=== PATIENT | female | born 1940 | race Caucasian/White ===

== ENCOUNTER 2018-04-23 08:19 | Emergency (ER) | payer OTHER, BC ==
--- NOTE | 2018-04-23 09:07 | EDPHYS ---
Physician Documentation [facility] Name: Gavi Claudio Age: 78 yrs Sex: Female : 1940 Arrival Date: 04/23/2018 Time: 08:21 Bed 8 Private MD: Jomar Urbano ED Physician Sigifredo Kwan HPI: 04/23 11:39 This 78 yrs old Female presents to ER via Wheelchair with complaints of Cat kdr Attack. 11:39 This 78 yrs old Female presents to ER via Wheelchair with complaints of Cat kdr Attack - pawed at her hand while opening canned cat food. 11:39 The patient was bitten on the dorsum of left hand, in an unprovoked manner, Feeding kdr cats. Onset: The symptoms/episode began/occurred acutely, just prior to arrival. Animal information: The animal was reported to appear healthy. Animal's vaccinations are up to date. The animal is known and can be quarantined, Animal control has. Secondary to the bite the patient reports a laceration, that is superficial, 2.5 cm(s), pain. Associated signs and symptoms: The patient has no apparent associated signs or symptoms. Severity of symptoms: At their worst the symptoms were very mild, in the emergency department the symptoms are unchanged. The patient has not experienced similar symptoms in the past. The patient has not recently seen a physician. Historical: - Allergies: 08:39 PENICILLINS; iw - Home Meds: 08:39 [place] Thyroid 60 mg Oral tab daily [Active]; folic acid 800 mcg Oral tab 1 tab once iw daily [Active]; aspirin 81 mg Oral TbEC 1 tab once daily [Active]; gabapentin 400 mg oral cap four times a day [Active]; magnesium oxide 250 mg Oral tab daily [Active]; methotrexate sodium 2.5 mg Oral tab once wkly [Active]; - PMHx: 08:39 Hypothyroidism; RA; Hypertension; iw - PSHx: 08:39 Appendectomy; Joint replacement; Knee surgery; iw - Immunization history:: Adult Immunizations not up to date, Last tetanus immunization: unknown. - Social history:: Smoking status: Patient/guardian denies using tobacco. - Ebola Screening: : Patient negative for fever greater than or equal to 101.5 degrees Fahrenheit, and additional compatible Ebola Virus Disease symptoms Patient denies exposure to infectious person Patient denies travel to an Ebola-affected area in the 21 days before illness onset No symptoms or risks identified at this time. ROS: 11:39 Constitutional: Negative for fever, chills, and weight loss. kdr 11:39 Skin: Positive for laceration(s), Negative for abscesses, avulsion, cellulitis, lesions, pallor, swelling. Exam: 11:39 Skin: injury, laceration(s), the wound is approximately 2.5 cm(s), with a depth of kdr 0.1 cm(s), of the left hand. 17:29 Constitutional: This is a well developed, well nourished patient who is awake, alert, kdr and in no acute distress. Vital Signs: 08:36 BP 135 / 84; Pulse 61; Resp 18 S; Temp 98.2; Pulse Ox 100% on R/A; Weight 75.3 kg; iw Height 5 ft. 5 in. (165.10 cm); Pain 0/10; 09:30 BP 125 / 87; Pulse 55; Resp 16; Pulse Ox 98% ; jl7 08:36 Body Mass Index 27.62 (75.30 kg, 165.10 cm) iw MDM: 09:07 Patient medically screened. kdr 11:39 Data reviewed: vital signs, nurses notes. Counseling: I had a detailed discussion with kdr the patient and/or guardian regarding: the historical points, exam findings, and any diagnostic results supporting the discharge/admit diagnosis, the need for outpatient follow up. 04/23 09:03 Order name: [facility]. Order: Clean and place no more than 2 ster-strips on wound. 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 Exp: jl7 06/25/2020. Lot #: [id number]. } Route: IM; Site: right deltoid; 09:43 Follow up: Response: No adverse reaction jl7 Disposition: 04/23/18 09:07 Discharged to Home. Impression: Cat Bite. - Condition is Stable. - Discharge Instructions: Animal Bite, [id number]. - Prescriptions for Doxycycline Hyclate 100 mg Oral Tablet - take 1 tablet by ORAL route every 12 hours; 20 tablet. - Medication Reconciliation Form, Thank You Letter, Antibiotic Education form. - Follow up: Private Physician; When: 2 - 3 days; Reason: If symptoms return, Further diagnostic work-up, Recheck today's complaints, Continuance of care, Re-evaluation by your physician. - Problem is new. - Symptoms have improved. Signatures: Sigifredo Kwan MD MD kdr Williams, Irene, RN RN iw Aracely Reynoso RN RN jl7 Corrections: (The following items were deleted from the chart) 09:44 09:07 04/23/2018 09:07 Discharged to Home. Impression: Cat Bite. Condition is Stable. jl7 Forms are Medication Reconciliation Form, Thank You Letter, Antibiotic Education, Prescription Opioid Use. Follow up: Private Physician; When: 2 - 3 days; Reason: If symptoms return, Further diagnostic work-up, Recheck today's complaints, Continuance of care, Re-evaluation by your physician. Problem is new. Symptoms have improved. kdr
--- NOTE | 2018-04-23 09:07 | ER ---
Nurse's Notes [facility] Name: Gavi Claudio Age: 78 yrs Sex: Female : 1940 Arrival Date: 04/23/2018 Time: 08:21 Bed 8 Private MD: Jomar Urbano Diagnosis: Cat Bite Presentation: 04/23 08:34 Presenting complaint: Patient states: her cat scratched her left hand while she was iw trying to open the can of cat food, pt states the wound was pouring blood when it happened, saturated dressing in place, bleeding has stopped, superficial laceration noted to left hand. Transition of care: patient was not received from another setting of care. Onset of symptoms was April 23, 2018. Risk Assessment: Do you want to hurt yourself or someone else? Patient reports no desire to harm self or others. Initial Sepsis Screen: Does the patient meet any 2 criteria? No. Patient's initial sepsis screen is negative. Does the patient have a suspected source of infection? No. Patient's initial sepsis screen is negative. Care prior to arrival: Bleeding of injury controlled. 08:34 Method Of Arrival: Wheelchair iw 08:34 Acuity: MARIA L 4 iw Historical: - Allergies: 08:39 PENICILLINS; iw - Home Meds: 08:39 [place] Thyroid 60 mg Oral tab daily [Active]; folic acid 800 mcg Oral tab 1 tab once iw daily [Active]; aspirin 81 mg Oral TbEC 1 tab once daily [Active]; gabapentin 400 mg oral cap four times a day [Active]; magnesium oxide 250 mg Oral tab daily [Active]; methotrexate sodium 2.5 mg Oral tab once wkly [Active]; - PMHx: 08:39 Hypothyroidism; RA; Hypertension; iw - PSHx: 08:39 Appendectomy; Joint replacement; Knee surgery; iw - Immunization history:: Adult Immunizations not up to date, Last tetanus immunization: unknown. - Social history:: Smoking status: Patient/guardian denies using tobacco. - Ebola Screening: : Patient negative for fever greater than or equal to 101.5 degrees Fahrenheit, and additional compatible Ebola Virus Disease symptoms Patient denies exposure to infectious person Patient denies travel to an Ebola-affected area in the 21 days before illness onset No symptoms or risks identified at this time. Screenin:30 Abuse screen: Denies threats or abuse. Denies injuries from another. Nutritional jl7 screening: No deficits noted. Tuberculosis screening: No symptoms or risk factors identified. Fall Risk None identified. Assessment: 09:30 General: Appears in no apparent distress. uncomfortable, Behavior is calm, cooperative, jl7 appropriate for age. Pain: Denies pain. Neuro: Level of Consciousness is awake, alert, obeys commands, Oriented to person, place, time, situation. Cardiovascular: Patient's skin is warm and dry. Respiratory: Airway is patent Respiratory effort is even, unlabored, Respiratory pattern is regular, symmetrical. Injury Description: Laceration sustained to left hand is contaminated, 0.5 to 2.5 cm long, was sustained 30-60 minutes ago. a small amount of bleeding noted at this time. Vital Signs: 08:36 BP 135 / 84; Pulse 61; Resp 18 S; Temp 98.2; Pulse Ox 100% on R/A; Weight 75.3 kg; iw Height 5 ft. 5 in. (165.10 cm); Pain 0/10; 09:30 BP 125 / 87; Pulse 55; Resp 16; Pulse Ox 98% ; jl7 08:36 Body Mass Index 27.62 (75.30 kg, 165.10 cm) iw ED Course: 08:21 Patient arrived in ED. mr 08:21 Jomar Urbano is Private Physician. mr 08:35 Sigifredo Kwan MD is Attending Physician. kdr 08:36 Triage completed. iw 08:36 Arm band placed on. iw 09:17 Aracely Reynoso RN is Primary Nurse. jl7 09:30 Patient has correct armband on for positive identification. Bed in low position. Call jl7 light in reach. Side rails up X 1. Pulse ox on. NIBP on. 09:30 Wound care: to laceration located on left hand was cleaned with dressed with Neosporin, jl7 band aid, Patient tolerated well. 09:38 No provider procedures requiring assistance completed. Patient did not have IV access jl7 during this emergency room visit. Administered Medications: 09:20 Drug: Doxycycline 100 mg Route: PO; jl7 09:43 Follow up: Response: No adverse reaction jl7 09:35 Drug: Tetanus-Diphtheria Toxoid Adult 0.5 ml {Otr Truck Driver: [employer]. Exp: jl7 06/25/2020. Lot #: [id number]. } Route: IM; Site: right deltoid; 09:43 Follow up: Response: No adverse reaction jl7 Outcome: 09:07 Discharge ordered by . jerrica 09:43 Discharged to home ambulatory. fide 09:43 Condition: stable 09:43 Discharge instructions given to patient, Instructed on discharge instructions, follow up and referral plans. medication usage, Demonstrated understanding of instructions, follow-up care, medications, Prescriptions given X 1. 09:44 Patient left the ED. jl7 Signatures: Sigifredo Kwan MD MD kdr Rivera, Maria mr Yoko Lea, RN RN Aracely Reynoso RN RN jl7
[2018-04-23] MEDS ORDERED: TETANUS & DIPHTHERIA TOX,ADULT 0.5 ML VIAL ONE (09:21)
[2018-04-23] MEDS ORDERED: DOXYCYCLINE 100 MG CAP PO ONE (09:21)
[2018-04-23 09:47] VITALS: TEMP 98.2
[2018-04-23 09:49] VITALS: BP 125/87; O2SAT 98
== END 2018-04-23 09:44 | disposition home or self-care (01) ==
LOC: ER 08:19
DX: S61.412A Laceration without foreign body of left hand, initial encounter (principal); W55.01XA Bitten by cat, initial encounter; Y93.89 Activity, other specified; Y92.019 Unspecified place in single-family (private) house as the place of occurrence of the external cause; Z88.0 Allergy status to penicillin; E03.9 Hypothyroidism, unspecified; I10 Essential (primary) hypertension; Z23 Encounter for immunization
CPT/HCPCS: 90714; 99284

== ENCOUNTER 2020-03-01 11:01 | Emergency (ER) | payer OTHER ==
--- NOTE | 2020-03-01 13:37 | EDPHYS ---
Physician Documentation [facility] Name: Gavi Claudio Age: 79 yrs Sex: Female : 1940 Arrival Date: 03/01/2020 Time: 11:02 Bed 27 Private MD: ED Physician Sigifredo Kwan HPI: 03/01 14:17 This 79 yrs old Female presents to ER via Ambulatory with complaints of snw Abscess. 14:17 Description: The affected area is small, well demarcated, erythematous. Onset: The snw symptoms/episode began/occurred 3 day(s) ago, and became persistent and improved post neighbor expressing pus from area yesterday per report. Possible cause(s): Cyst became infected. Associated signs and symptoms: The patient has no apparent associated signs or symptoms. Severity of symptoms: At their worst the symptoms were mild. The patient has experienced a previous episode. It is unknown whether or not the patient has recently seen a physician. Historical: - Allergies: 11:52 PENICILLINS; jl7 - Home Meds: 11:52 [place] Thyroid 60 mg Oral tab daily [Active]; gabapentin 400 mg Oral cap four times a jl7 day [Active]; losartan 50 mg oral tab [Active]; amlodipine 2.5 mg tab [Active]; magnesium oxide 250 mg Oral tab daily [Active]; folic acid 800 mcg Oral tab 1 tab once daily [Active]; aspirin 81 mg Oral TbEC 1 tab once daily [Active]; methotrexate sodium 2.5 mg Oral tab once wkly [Active]; - PMHx: 11:52 Hypertension; Hypothyroidism; RA; jl7 - PSHx: 11:52 Appendectomy; Joint replacement; Knee surgery; jl7 - Immunization history:: Adult Immunizations up to date. - Social history:: Smoking status: Patient denies any tobacco usage or history of. ROS: 14:15 Constitutional: Negative for fever, chills, and weight loss, Eyes: Negative for injury, snw pain, redness, and discharge, ENT: Negative for injury, pain, and discharge, Neck: Negative for injury, pain, and swelling, Cardiovascular: Negative for chest pain, palpitations, and edema, Respiratory: Negative for shortness of breath, cough, wheezing, and pleuritic chest pain, Abdomen/GI: Negative for abdominal pain, nausea, vomiting, diarrhea, and constipation, Back: Negative for injury and pain, : Negative for injury, bleeding, discharge, and swelling, MS/Extremity: Negative for injury and deformity, Neuro: Negative for headache, weakness, numbness, tingling, and seizure, Psych: Negative for depression, anxiety, suicide ideation, homicidal ideation, and hallucinations. 14:15 Skin: Positive for abscess, cellulitis, of the right scapular area, area has been drained before, pt took round of clindamycin 02/05/20. Exam: 14:13 Constitutional: This is a well developed, well nourished patient who is awake, alert, snw and in no acute distress. Head/Face: Normocephalic, atraumatic. Eyes: Pupils equal round and reactive to light, extra-ocular motions intact. Lids and lashes normal. Conjunctiva and sclera are non-icteric and not injected. Cornea within normal limits. Periorbital areas with no swelling, redness, or edema. ENT: Nares patent. No nasal discharge, no septal abnormalities noted. Tympanic membranes are normal and external auditory canals are clear. Oropharynx with no redness, swelling, or masses, exudates, or evidence of obstruction, uvula midline. Mucous membranes moist. Neck: Trachea midline, no thyromegaly or masses palpated, and no cervical lymphadenopathy. Supple, full range of motion without nuchal rigidity, or vertebral point tenderness. No Meningismus. Chest/axilla: Normal chest wall appearance and motion. Nontender with no deformity. No lesions are appreciated. Cardiovascular: Regular rate and rhythm with a normal S1 and S2. No gallops, murmurs, or rubs. Normal PMI, no JVD. No pulse deficits. Respiratory: Lungs have equal breath sounds bilaterally, clear to auscultation and percussion. No rales, rhonchi or wheezes noted. No increased work of breathing, no retractions or nasal flaring. Abdomen/GI: Soft, non-tender, with normal bowel sounds. No distension or tympany. No guarding or rebound. No evidence of tenderness throughout. MS/ Extremity: Pulses equal, no cyanosis. Neurovascular intact. Full, normal range of motion. Neuro: Awake and alert, GCS 15, oriented to person, place, time, and situation. Cranial nerves II-XII grossly intact. Motor strength 5/5 in all extremities. Sensory grossly intact. Cerebellar exam normal. Normal gait. Psych: Awake, alert, with orientation to person, place and time. Behavior, mood, and affect are within normal limits. 14:13 Back: pain, that is mild, ROM is normal, vertebral tenderness, is not appreciated. 14:13 Skin: Appearance: normal except for affected area, cellulitis, that is mild, well demarcated, on the right subscapular area, no induration, + pit noted. Vital Signs: 11:45 BP 130 / 86; Pulse 73; Resp 17; Temp 97.8; Pulse Ox 100% ; Weight 70.31 kg; Pain 0/10; jl7 MDM: 13:09 Patient medically screened. snw 14:17 Data reviewed: vital signs, nurses notes. Data interpreted: Pulse oximetry: on room air snw is 100 %. Interpretation: normal. Counseling: I had a detailed discussion with the patient and/or guardian regarding: the historical points, exam findings, and any diagnostic results supporting the discharge/admit diagnosis, the presence of at least one elevated blood pressure reading (>120/80) during this emergency department visit, the need for outpatient follow up, to return to the emergency department if symptoms worsen or persist or if there are any questions or concerns that arise at home. Special discussion: I have referred the patient to see his PCP for further evaluation of high blood pressure. I discussed in detail with the patient the higher chance of wound infection based on his presenting history. Based on the history and exam findings, there is no indication for further emergent testing or inpatient evaluation. I discussed with the patient/guardian the need to see the primary care provider for further evaluation of the symptoms. 03/01 13:34 Order name: Wound Care; Complete Time: 13:40 snw 03/01 13:34 Order name: Wound dressing; Complete Time: 13:40 snw Administered Medications: 13:45 Drug: Doxycycline 100 mg Route: PO; ls4 Disposition: 17:11 Co-signature as Attending Physician, Sigifredo Kwan MD I agree with the assessment and kdr plan of care. Disposition: 03/01/20 13:35 Discharged to Home. Impression: Cellulitis of trunk, unspecified. - Condition is Stable. - Discharge Instructions: Cellulitis, Adult, Heat Therapy. - Prescriptions for Doxycycline Hyclate 100 mg Oral Tablet - take 1 tablet by ORAL route every 12 hours; 20 tablet. - Medication Reconciliation Form, Thank You Letter, Antibiotic Education, Prescription Opioid Use form. - Follow up: Emergency Department; When: As needed; Reason: Fever > 102 F, Worsening of condition. Follow up: Private Physician; When: 2 - 3 days; Reason: Recheck today's complaints, Continuance of care, Re-evaluation by your physician. Signatures: Sigifredo Kwan MD MD [facility] Dunia Sanz, MATTHEW-C INSPECTOR WATCH TRAIN-Darlinew Aracely Reynoso, RN RN jl7 Roxana Berrios RN RN ls4 Corrections: (The following items were deleted from the chart) 14:39 13:35 03/01/2020 13:35 Discharged to Home. Impression: Cellulitis of trunk, ls4 unspecified. Condition is Stable. Forms are Medication Reconciliation Form, Thank You Letter, Antibiotic Education, Prescription Opioid Use. Follow up: Emergency Department; When: As needed; Reason: Fever > 102 F, Worsening of condition. Follow up: Private Physician; When: 2 - 3 days; Reason: Recheck today's complaints, Continuance of care, Re-evaluation by your physician. snw
--- NOTE | 2020-03-01 13:37 | ER ---
Nurse's Notes [facility] Name: Gavi Claudio Age: 79 yrs Sex: Female : 1940 Arrival Date: 03/01/2020 Time: 11:02 Bed 27 Private MD: Diagnosis: Cellulitis of trunk, unspecified Presentation: 03/01 11:45 Chief complaint:. Chief complaint: Patient states: Cyst to right shoulder blade, took jl7 Clindamycin for 7 days for it back in January and it's still not healing up. Neighbor squeezed it yesterday and got a bunch of pus out. Denies pain and fever. Coronavirus screen: Proceed with normal triage. Patient denies a cough. Patient denies shortness of breath or difficulty breathing. Patient denies measured and/or subjective temperature greater than 100.4F prior to today's visit. Patient denies travel on a cruise ship or to a country the [facility] currently lists as an affected area. Patient denies contact with known and/or suspected case of COVID-19. Ebola Screen: No symptoms or risks identified at this time. Initial Sepsis Screen: Does the patient meet any 2 criteria? No. Patient's initial sepsis screen is negative. Does the patient have a suspected source of infection? No. Patient's initial sepsis screen is negative. Risk Assessment: Do you want to hurt yourself or someone else? Patient reports no desire to harm self or others. Onset of symptoms was January 2020. 11:45 Method Of Arrival: Ambulatory jl7 11:45 Acuity: MARIA L 4 jl7 Triage Assessment: 11:52 General: Appears in no apparent distress. uncomfortable, Behavior is calm, cooperative, jl7 appropriate for age. Pain: Denies pain. Neuro: Level of Consciousness is awake, alert, obeys commands, Oriented to person, place, time, situation. Cardiovascular: Patient's skin is warm and dry. Respiratory: Airway is patent Respiratory effort is even, unlabored, Respiratory pattern is regular, symmetrical. Derm: Skin is pink, warm \T\ dry. Abscess located on right scapular area is nickel sized, is hot to touch, is red, was lanced by patient prior to arrival. Historical: - Allergies: 11:52 PENICILLINS; jl7 - Home Meds: 11:52 [place] Thyroid 60 mg Oral tab daily [Active]; gabapentin 400 mg Oral cap four times a jl7 day [Active]; losartan 50 mg oral tab [Active]; amlodipine 2.5 mg tab [Active]; magnesium oxide 250 mg Oral tab daily [Active]; folic acid 800 mcg Oral tab 1 tab once daily [Active]; aspirin 81 mg Oral TbEC 1 tab once daily [Active]; methotrexate sodium 2.5 mg Oral tab once wkly [Active]; - PMHx: 11:52 Hypertension; Hypothyroidism; RA; jl7 - PSHx: 11:52 Appendectomy; Joint replacement; Knee surgery; jl7 - Immunization history:: Adult Immunizations up to date. - Social history:: Smoking status: Patient denies any tobacco usage or history of. Screenin:08 Abuse screen: Denies threats or abuse. Denies injuries from another. Nutritional iw screening: No deficits noted. Tuberculosis screening: No symptoms or risk factors identified. Fall Risk None identified. Assessment: 13:07 General: Appears in no apparent distress. comfortable, Behavior is calm, cooperative. iw Neuro: Level of Consciousness is awake, alert, obeys commands, Oriented to person, place, time, situation, Moves all extremities. Cardiovascular: Patient's skin is warm and dry. Respiratory: Airway is patent Respiratory effort is even, unlabored, Respiratory pattern is regular, symmetrical. Derm: Skin is fragile, is thin, Abscess located on back and right scapular area was lanced by patient prior to arrival. Vital Signs: 11:45 BP 130 / 86; Pulse 73; Resp 17; Temp 97.8; Pulse Ox 100% ; Weight 70.31 kg; Pain 0/10; jl7 ED Course: 11:02 Patient arrived in ED. ds1 11:50 Triage completed. jl7 11:52 Arm band placed on right wrist. jl7 13:05 Yoko Lea, RN is Primary Nurse. iw 13:08 Patient has correct armband on for positive identification. Placed in gown. iw 13:08 Patient did not have IV access during this emergency room visit. iw 13:09 Dunia Sanz FNP-C [facility]. snw 13:09 Sigifredo Kwan MD is Attending Physician. snw 14:38 No provider procedures requiring assistance completed. iw Administered Medications: 13:45 Drug: Doxycycline 100 mg Route: PO; ls4 Outcome: 13:35 Discharge ordered by . medhat 14:38 Discharged to home ambulatory. iw 14:38 Condition: good 14:38 Discharge instructions given to patient, Instructed on discharge instructions, follow up and referral plans. medication usage, Demonstrated understanding of instructions, follow-up care, medications, Prescriptions given X 1. 14:39 Patient left the ED. ls4 Signatures: Dunia Sanz, AERONAUTICAL ENGINEER-C AERONAUTICAL ENGINEER-Csnw Berkley Zambrano ds1 Yoko Lea, RN RN iw Aracely Reynoso RN RN jl7 Roxana Berrios RN RN ls4
[2020-03-01] MEDS ORDERED: DOXYCYCLINE 100 MG CAP PO ONE (13:48)
[2020-03-01 16:20] VITALS: BP 130/86; TEMP 97.8; O2SAT 100
== END 2020-03-01 14:39 | disposition home or self-care (01) ==
LOC: ER 11:01
DX: L03.319 Cellulitis of trunk, unspecified (principal); I10 Essential (primary) hypertension; E03.9 Hypothyroidism, unspecified; Z88.0 Allergy status to penicillin; Z79.82 Long term (current) use of aspirin
CPT/HCPCS: 99283

== ENCOUNTER 2020-10-18 10:01 | Emergency (ER) | payer OTHER ==
--- OUTSIDE RECORDS SUMMARY | 2020-10-18 10:56 | XMS REPORT | Summary of Care ---
:1940 Author Organization [facility] - Health Address [address] [place] [address] Care Team Providers Name Role Phone Hubert Urbano MD Primary Care Provider Encounter Details Date Type Department Care Team Description 08/16/2020 Orders Only [facility] Doctor Unassigned, No [address] [facility] [place] [address] [address] [place] [address] Allergies Active Allergy Reactions Severity Noted Date Comments Penicillins Itching High 04/19/2015 documented as of this encounter (statuses as of 08/16/2020) Medications Medication Sig Dispensed Refills Start Date End Date Status ALPRAZolam (XANAX) 0.5 Take 0.5 mg by 0 Active mg tablet mouth as needed. amLODIPine (NORVASC) Take 2.5 mg by 0 Active 2.5 mg tablet mouth daily. losartan (COZAAR) 100 Take 100 mg by 0 Active mg tablet mouth daily. thyroid (ARMOUR Take 60 mg by 0 Active THYROID) 60 mg tablet mouth daily. gabapentin (NEURONTIN) Take 400 mg by 0 Active 400 mg capsule mouth 3 (three) times daily. 4X per day & QHS methotrexate Take 15 mg by 0 Act marian (RHEUMATREX) 2.5 mg mouth weekly. tabletIndications: Indications: Take Take 5 tablets every 5 tablets every Friday paroxetine (PAXIL) 10 Take 10 mg by 0 Active mg tablet mouth as needed (Anxiety). folic acid (FOLVITE) Take 400 mcg by 0 Active 800 mcg tablet mouth daily. aspirin 81 mg chewable Take 81 mg by 0 Active tablet mouth daily. omeprazole (PRILOSEC) Take 20 mg by 0 Active 20 mg capsule mouth daily. FOLIC Take 800 mcg by 0 Acti ve ACID/MULTIVIT-MIN/LUTE mouth daily. IN (CENTRUM SILVER ORAL) Vitamin B Comp & C Take 1 Tab by 0 Active No.4 (SUPER B COMPLEX mouth daily. + C) 150 mg Tab Cholecalciferol, Take 1 Cap by 0 Active Vitamin D3, (VITAMIN mouth daily. D3) 1,000 unit Cap Magnesium 250 mg Tab Take 2 Tabs by 0 Active mouth daily. Zinc 50 mg Tab Take 1 tablet by 0 Active mouth daily. documented as of this encounter (statuses as of 08/16/2020) Active Problems Not on filedocumented as of this encounter (statuses as of 08/16/2020) Social History Tobacco Use Types Packs/Day Years Used Date Never Smoker Smokeless Tobacco: Never Used Alcohol Use Drinks/Week oz/Week Comments No Sex Assigned at Date Recorded Not on file COVID-19 Exposure Response Date Recorded In the last month, have you been in contact with No / Unsure 08/15/2020 1:56 PM CDT someone who was confirmed or suspected to have Coronavirus / COVID-19? documented as of this encounter Last Filed Vital Signs Not on filedocumented in this encounter Plan of Treatment Date Type Specialty Care Team Description 08/16/2020 Laboratory Only Clinical Medical Bayron Lees MD [address] [place] [phone] Arrived Laboratory Only, Adc Test 08/17/2020 Hospital Surgery Bayron Lees MD [address] [phone] 08/17/2020 Anesthesia Event Surgery Guille Yadav, [address] [phone] 08/17/2020 Surgery Surgery Bayron Lees PHACOEMULSIFIC ATION MD Johnathan CATARACT [address] [place] [phone] Health Maintenance Due Date Last Done Comments DTaP,Tdap,and Td Vaccines (1 - Tdap) 1959 Zoster Recombinant Vaccine (SHINGRIX) (1 of 2) 1989 Medicare Wellness Visit 2004 Osteoporosis Screening 2004 PNEUMOCOCCAL VACCINES 65+ (1 of 1 - PPSV23) 2004 INFLUENZA VACCINE (#1) 2020 Depression Screening 07/06/2021 07/06/2020 documented as of this encounter Implants Implanted Type Area Live Out Nanny Device Shelf Model / Identifier Expiration Date Ser ial / Lot Lens, Chris #[id number] - [id number] LENS Right: Chris 01/05/2025 [id number] / Implanted: Qty: 1 on 07/06/2020 by Bayron Lees MD at [facility] Eye 1 [id number] / N/A documented as of this encounter Procedures Procedure Name Priority Date/Time Associated Diagnosis Comme nts ASSIGNMENT OF BENEFITS Routine 08/16/2020 9:28 AM CDT documented in this encounter Results Not on filedocumented in this encounter Insurance Payer Benefit Plan / Subscriber ID Effective Dates Phone Addre ss Type Group HUMANA - HUMANA [id number] 2011-[facility] Adv MANAGED MEDICARE ERS t PPO MEDICARE documented as of this encounter
--- OUTSIDE RECORDS SUMMARY | 2020-10-18 10:56 | XMS REPORT | Summary of Care ---
:1940 Author Organization [facility] Address [address] [place] [address] Care Team Providers Name Role Phone Hubert Urbano MD Primary Care Provider Reason for Visit Reason Comments LAB WORK Auth/Cert Status Reason Specialty Diagnoses / Referred By Referred To Procedures Contact Contact Clinical Medical Procedures [facility] Lab Laboratory COVID PREOP [address] [place] [address] Encounter Details Date Type Department Care Team Description 08/16/2020 Laboratory Only [facility] Bayron Lees MD [address] [facility] [address] [place] [address] Pre-operative Phlebotomy Only, [facility] Test clearance (Primary Lab-[place] Dx) [address] [place] [address] Allergies Active Allergy Reactions Severity Noted Date [...] Treatment Date Type Specialty Care Team Description 08/17/2020 Hospital Encounter Surgery Bayron Lees MD [address] [place] [phone] 08/17/2020 Anesthesia Event Surgery Guille Yadav C [address] [phone] 08/17/2020 Surgery Surgery Bayron Lees PHACOEMULSIFIC [facility]FORMERLY [facility], [facility] MD Johnathan CATARACT [address] [phone] Name Type Priority Associated Diagnoses Date/Ti me COVID-19 (ID NOW RAPID LAB Routine Pre-operative cory quinten 08/16/2020 9:33 AM CDT TESTING) Name Type Priority Associated Diagnoses Order S chedule COVID-19 (ID NOW RAPID LAB Routine Pre-operative cory quinten Expected: 08/16/2020, TESTING) Expires: 2020 Health Maintenance Due Date Last Done Comments DTaP,Tdap,and Td Vaccines (1 - Tdap) 1958 Zoster Recombinant Vaccine (SHINGRIX) (1 of 2) 1989 Medicare Wellness Visit 2004 Osteoporosis Screening 2004 PNEUMOCOCCAL VACCINES 65+ (1 of 1 - PPSV23) 2004 INFLUENZA VACCINE (#1) 2020 Depression Screening 07/06/2021 07/06/2020 documented as of this encounter Implants Implanted Type Area Continuous Improvement Black Belt Device Shelf Model / Identifier Expiration Date Ser ial / Lot Lens, Chris #[id number] - [id number] LENS Right: Chris 01/05/2025 [id number] / Implanted: Qty: 1 on 07/06/2020 by Bayron Lees MD at [facility] Eye 1 [id number] / N/A documented as of this encounter Results Not on filedocumented in this encounter Visit Diagnoses Diagnosis Pre-operative clearance - Primary Preoperative examination, unspecified Nuclear sclerotic cataract of left eye Senile nuclear sclerosis documented in this encounter Additional Health Concerns Infection Onset Date Last Indicated Resolved Time COVID-19 Rule Out 08/16/2020 08/16/2020 documented as of this encounter Insurance Payer Benefit Plan / Subscriber ID Effective Dates Phone Addre ss Type Group HUMANA - HUMANA [id number] 2011-[facility] MANAGED MEDICARE ERS t PPO MEDICARE documented as of this encounter
--- OUTSIDE RECORDS SUMMARY | 2020-10-18 10:56 | XMS REPORT | Continuity of Care Document ---
:1940 Author Organization [facility] t Address [address] [place] [address] Care Team Providers Name Role Phone Johnathan Lees MD Attending Clinician Leif MCKENZIE Attending Clinician Yariel STRAUSS Attending Clinician Only, Test Attending Clinician Unavailable Doctor Unassigned, Name Attending Clinician Unavailable Pob, Lab Main Attending Clinician Unavailable Johnathan Lees MD Admitting Clinician Problems This patient has no known problems. Allergies, Adverse Reactions, Alerts This patient has no known allergies or adverse reactions. Medications This patient has no known medications. Procedures This patient has no known procedures. Encounters Start End Encounter Admission Attending Care Care Encounter Source Date/Time Date/Time Type Type Clinicians Facility Department ID 2020-08-17 2020-08-17 [facility] Yoana [facility] [id number] 08:39:00 11:30:00 Encounter Bayron Burleson [id number] Johnathan Costa [id number] Surgical [id number] [place] 071 2020-08-17 2020-08-17 Anesthesia Guille Yadav [facility] [id number] 10:06:00 10:51:00 Kimber Saldivar [id number] Julissa [id number] Surgical [id number] [place] 020 2020-08-16 2020-08-16 Laboratory Only, [facility] [id number] 09:27:39 09:42:39 Only Test [place] [id number] [place] 4.2.7.2.686 [place] [id number] 2020-08-16 2020-08-16 Orders Doctor FREDY [id number] 00:00:00 00:00:00 Only Unassigned, NI [id number] [place] [address]686 [id number] 2020-07-06 2020-07-06 [facility], [facility] [id number] 09:00:00 12:13:00 Encounter Bayron [place] [id number] Johnathan Costa [id number] Surgical [id number] [place] 07 2020-07-05 2020-07-05 Laboratory Only, [facility] [id number] 09:05:40 09:20:40 Only Test [place] [id number] [place] 4.2.7.2.686 [place] [id number] 2020-07-05 2020-07-05 Orders Doctor FREDY [id number] 00:00:00 00:00:00 Only Unassigned, NI [id number] [place] [address]686 [id number] 2020-06-15 2020-06-15 Torch Solderer Sue, [facility] [id number] 11:11:40 11:26:40 Visit Lab Main Benjy [id number] [place] 4.2.7.2.686 Professio [id number] [facility] 353 Building Results This patient has no known results.
--- OUTSIDE RECORDS SUMMARY | 2020-10-18 10:57 | XMS REPORT | Summary of Care ---
:1940 Author Organization [facility] - Health Address [address] [place] [address] Care Team Providers Name Role Phone Hubert Urbano MD Primary Care Provider Reason for Visit Auth/Cert Status Reason Specialty Diagnoses / Procedures Referred By C ontact Referred To Contact Surgery Diagnoses Age-related nuclear cataract, left eye Nuclear sclerotic cataract of left eye [H25.12] Adc Pr e/Pacu/Post Procedures [facility] CODING HELP AL XCAPSL CTRC RMVL INSJ IO LENS PROSTH W/O ECP PHACOEMULSIFICATION CATARACT [id number] - AL XCAPSL CTRC RMVL INSJ IO LENS PROSTH W/O ECP [address] [place] [address] 4 4291 Phone: Fax: Encounter Details Date Type Department Care Team Description 08/17/2020 Anesthesia [facility] Elmer Haleigh Tripeltt MD [address] [place] [address] [phone] [facility] Guille Yadav CRNA [address] [place] [phone] [place] [address] Dr fonseca [place], [place] [address] Allergies Active Allergy Reactions Severity Noted Date Comments Penicillins Itching High 04/19/2015 documented as of this encounter (statuses as of 09/12/2020) Medications Medication Sig Dispensed Refills Start Date [...] as of this encounter (statuses as of 09/12/2020) Active Problems Not on filedocumented as of this encounter (statuses as of 09/12/2020) Social History Tobacco Use Types Packs/Day Years [...] of this encounter Last Filed Vital Signs Vital Sign Reading Time Taken Comments Blood Pressure - - Pulse - - Temperature - - Respiratory Rate 19 08/17/2020 10:48 AM CDT Oxygen Saturation - - Inhaled Oxygen Concentration - - Weight - - Height - - Body Mass Index - - documented in this encounter OR Notes Anesthesia Postprocedure Evaluation - Vinicius Byers MD - 08/17/2020 11:09 AM CDT Patient: Gavi Claudio Procedure Summary Date: 08/17/20 Room / Location: [address] Location Anesthesia Start: 1006 Anesthesia Stop: 1051 Procedure: PHACOEMULSIFICATION CATARACT (Left Eye) Diagnosis: Nuclear sclerotic cataract of left eye (SAME) Surgeon: Bayron Lees MD Responsible Provider: Kimber Saldivar MD Anesthesia Type: General ASA Status: 3 Anesthesia Type: General Last vitals BP 123/68 (08/17/20 1104) Temp 36.7 C (98 F) (08/17/20 1054) Pulse 77 (08/17/20 1104) Resp 19 (08/17/20 1104) SpO2 96 % (08/17/20 1104) No complications documented. Anesthesia Post Evaluation Patient location during evaluation: PACU Patient participation: complete - patient participated Level of consciousness: awake and alert Pain management: satisfactory to patient Airway patency: patent Cardiovascular status: acceptable and blood pressure returned to baseline Respiratory status: acceptable Hydration status: acceptable nesthesia Procedure Notes - Vignesh Redmond CRNA - 08/17/2020 10:27 AM CDTAssociated Order(s): IntubationIntubation Date/Time: 08/17/2020 10:28 AM Urgency: elective Airway not difficult General Information and Staff Patient location during procedure: OR Resident/INFORMATION OPERATOR: Vignesh Redmond CRNA Indications and Patient Condition Indications for airway management: anesthesia Spontaneous ventilation: present Sedation level: deep Preoxygenated: yes Patient position: sniffing MILS maintained throughout Mask difficulty assessment: 1 - vent by mask No planned trial extubation Final Airway Details Final airway type: endotracheal airway Successful airway: ETT Cuffed: yes Successful intubation technique: direct laryngoscopy Endotracheal tube insertion site: oral Blade: Lin Blade size: #2 ETT size (mm): 7.0 Cormack-Lehane Classification: grade IIb - view of arytenoids or posterior of glottis only Placement verified by: chest auscultation and capnometry Measured from: lips ETT to lips (cm): 22 Number of attempts at approach: 1 Ventilation between attempts: BVM Number of other approaches attempted: 0 Anesthesia Preprocedure Evaluation - Kimber Saldivar MD - 08/04/2020 2:01 PM CDT Name/ MRN / Age / Gender: Gavi Claudio, [id number] 80 year old female BMI: Estimated body mass index is 26.78 kg/m as calculated from the following: Height as of 06/27/20: 1.651 m (5' 5"). Weight as of 06/27/20: 73 kg (160 lb 15 oz). Allergies: Pcn [penicillins] Last Vitals: BP Readings from Last 1 Encounters: 07/06/20 127/85 Pulse Readings from Last 1 Encounters: 07/06/20 67 SpO2 Readings from Last 1 Encounters: 07/06/20 100% Date of Surgery: 06/22/2020 Surgeon: Bayron Lees MD Procedure: PHACOEMULSIFICATION CATARACT (Left Eye) OR Location: [facility] OR Location Anesthesia Preop Eval (physical exam) Anesthesia Preop: Chart Review and [id number] NPO Status Verified Clear Liquids: > 2 Hours Solid Food/Non-Clear Liquids: > 8 Hours PONV Risk Factors: female and non-smoker PONV Risk Score: 2 Anesthesia History Anesthesia History Negative Anesthesia History Negative per Chart Review Previous Anesthetics/Airways Cardiovascular Comments: Cardiac clearance in chart from Dr. Drew. METS: 4 (+) Hypertension Pulmonary (+) Sleep apnea, CPAP compliant Neuro/Musculoskeletal Comments: Denies using steroids; on methotrexate. 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 Hold on DOS. Anticoagulant Therapy: Defer to surgeons Phentermine: Alert [facility] anesthesiologist MAC Cases: Continue taking HATTIE inhibitors and ARBs ASA Classification ASA: 3 ASA Comments: HTN RA GERD MARIA T on CPAP Hypothyroidism Current Medications: No outpatient medications have been marked as taking for the 08/17/20 encounter (Anesthesia Event) with Guille Yadav CRNA. 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 TOTAL KNEE ARTHROPLASTY Bilateral Anesthesia Physical Exam General no apparent distress and alert and oriented x 3 Neuro/Psych neurological Dental Abdominal GI exam normal Airway Mallampati score:II TM distance:> 5 cm Neck ROM: full Mouth opening:normal Extremity Pulmonary bilateral clear to auscultation Other Cardiovascular Rhythm:regular Rate: normal Anesthesia Plan ASA Status: 3 Plan discussed during pre-op evaluation: General, TIVA and MAC Anesthetic plan on DOS: TIVA Anesthesia plan discussed with: patient or vendor representatives Post-Operative Analgesia: routine analgesia & antiemetics Recovery Plan: PACU Additional comments: Discussed TIVA/GETA/MAC with patient, including the risk of awareness, conversion to GETA, dysphagia, dysphonia, organ damage, PONV, damage to teeth/lips, AR, or CVA. The patient understands and agrees to proceed. Will discuss GETA vs. TIVA with Dr. Lees, as the patient has severe anxiety and received GETA for the last procedure. documented in this encounter Miscellaneous Notes Addendum Note - Guille Yadav CRNA - 09/12/2020 10:16 AM CST Addendum created 09/12/20 1016 by Guille Yadav CRNA Intraprocedure Meds edited documented in this encounter Plan of Treatment Health Maintenance Due Date Last Done Comments DTaP,Tdap,and Td Vaccines (1 - Tdap) 1959 Zoster Recombinant Vaccine (SHINGRIX) (1 of 2) 1989 Medicare Wellness Visit 2004 Osteoporosis Screening 2004 PNEUMOCOCCAL VACCINES 65+ (1 of 1 - PPSV23) 2004 INFLUENZA VACCINE (#1) 2020 Depression Screening 08/17/2021 08/17/2020 documented as of this encounter Implants Implanted Type Area Technical Expert Device Shelf Model / Identifier Expiration Date Ser ial / Lot Lens, Chris #[id number] - [id number] LENS Right: Chris 01/05/2025 [id number] / Implanted: Qty: 1 on 07/06/2020 by Bayron Lees MD at [facility] Eye 1 [id number] / N/A Lens, Chris #[id number] - [id number] LENS Left: Eye Chris 06/26/2024 [id number] / Implanted: Qty: 1 on 08/17/2020 by Bayron Lees MD at [facility] 1 [id number] / N/A documented as of this encounter Procedures Procedure Name Priority Date/Time Associated Diagnosis Comme nts INTUBATION Routine 08/17/2020 10:27 AM Results for this CDT procedure are i n the results section . documented in this encounter Results Intubation (08/17/2020 10:27 AM CDT) Narrative Performed At Vignesh Redmond CRNA 08/17/2020 10:29 AM Intubation Date/Time: 08/17/2020 10:28 AM Urgency: elective Airway not difficult General Information and Staff Patient location during procedure: OR Resident/INFORMATION OPERATOR: Vignesh Redmond CRNA Indications and Patient Condition Indications for airway management: anest hesia Spontaneous ventilation: present Sedation level: deep Preoxygenated: yes Patient position: sniffing MILS maintained throughout Mask difficulty assessment: 1 - vent by mask No planned trial extubation Final Airway Details Final airway type: endotracheal airway Successful airway: ETT Cuffed: yes Successful intubation technique: direct laryngoscopy Endotracheal tube insertion site: oral Blade: Lin Blade size: #2 ETT size (mm): 7.0 Cormack-Lehane Classification: grade IIb - view of castro tenoids or posterior of glottis only Placement verified by: chest auscultatio n and capnometry Measured from: lips ETT to lips (cm): 22 Number of attempts at approach: 1 Ventilation between attempts: BVM Number of other approaches attempted: 0 documented in this encounter Administered Medications Medication Order MAR Action Action Date Dose Rate Site lactated ringers IV infusion New Bag 08/17/2020 10:06 AM CDT IV Infusion, CONTINUOUS PRN, Starting Mara 08/17/20 at 1006, Until Mara 08/17/20 at 1048, Routine, Intra-op lidocaine 1% (XYLOCAINE) 100 mg/10 mL (1 %) Given 08/17/2020 10: 09 AM CDT 8 mL injection ONCE INTRA PROCEDURE, Starting Mara 08/17/20 at 1009, Until Mara 08/17/20 at 1048, Routine, Intra-op midazolam (VERSED) injection Given 08/17/2020 10:06 AM CDT 2 mg IV Push, ONCE INTRA PROCEDURE, Starting Mara 08/17/20 at 1006, Until Mara 08/17/20 at 1048, Routine, Intra-op ondansetron (ZOFRAN (PF)) injection Given 08/17/2020 10:37 AM CDT 4 mg ONCE INTRA PROCEDURE, Starting Mara 08/17/20 at 1037, Until Mara 08/17/20 at 1048, Routine, Intra-op PHENYLephrine 1000 mcg/10 mL in 0.9% NaCl Given 08/17/2020 1 0:31 AM CDT 100 mcg syringe ONCE INTRA PROCEDURE, Starting Mara 08/17/20 at 1031, Until Mara 08/17/20 at 1048, Routine, Intra-op propofoL IV infusion Given 08/17/2020 10:11 AM CDT 120 mg Intravenous, ONCE INTRA PROCEDURE, Starting Mara 08/17/20 at 1011, Until Mara 08/17/20 at 1048, Routine, Intra-op remifentaniL (ULTIVA) injection Given 08/17/2020 10:11 AM CDT 30 mcg ONCE INTRA PROCEDURE, Starting Mara 08/17/20 at 1011, Until 09/12/20 at 1016, Routine, Intra-op sugammadex (BRIDION) injection Given 08/17/2020 10:39 AM CDT 145.2 mg IV Push, ONCE INTRA PROCEDURE, Starting Mara 08/17/20 at 1039, Until Mara 08/17/20 at 1049, Routine, Intra-op documented in this encounter Insurance Payer Benefit Plan / Subscriber ID Effective Dates Phone Addre ss Type Group HUMANA - HUMANA [id number] 2011-[facility] MANAGED MEDICARE ERS t PPO MEDICARE documented as of this encounter
--- OUTSIDE RECORDS SUMMARY | 2020-10-18 10:57 | XMS REPORT | Summary of Care ---
:1940 Author Organization [facility] - Health Address [address] [place] [id number] Care Team Providers Name Role Phone Hubert Urbano MD Primary Care Provider Reason for Visit Auth/Cert Status Reason Specialty Diagnoses / Procedures Referred By C ontact Referred To Contact Surgery Diagnoses Age-related nuclear cataract, left eye Nuclear sclerotic cataract of left eye [H25.12] Adc Pr e/Pacu/Post Procedures [facility] CODING HELP TN XCAPSL CTRC RMVL INSJ IO LENS PROSTH W/O ECP PHACOEMULSIFICATION CATARACT 51185 - TN XCAPSL CTRC RMVL INSJ IO LENS PROSTH W/O ECP [address] [place] [address] [phone] Phone: Fax: Encounter Details Date Type Department Care Team Description 08/17/2020 Hospital Encounter [facility] Julissa Lees Bayron Jose J Mann MD [address] [place] [address] Dr [address] [place] [address] [place] [address] [place] [address] Allergies Active Allergy Reactions Severity Noted Date Comments Penicillins Itching High 04/19/2015 documented as of this encounter (statuses as of 08/17/2020) Medications Medication Sig Dispensed Refills Start Date [...] as of this encounter (statuses as of 08/17/2020) Active Problems Not on filedocumented as of this encounter (statuses as of 08/17/2020) Social History Tobacco Use Types Packs/Day Years Used Date Never Smoker Smokeless Tobacco: Never Used Tobacco Cessation: Counseling Given: No Alcohol Use Drinks/Week oz/Week Comments No Sex [...] Sign Reading Time Taken Comments Blood Pressure 112/66 08/17/2020 11:16 AM CDT Pulse 75 08/17/2020 11:16 AM CDT Temperature 36.7 C (98 F) 08/17/2020 10:54 AM CDT Respiratory Rate 18 08/17/2020 11:16 AM CDT Oxygen Saturation 97% 08/17/2020 11:16 AM CDT Inhaled Oxygen Concentration - - Weight 72.6 kg (160 lb) 08/15/2020 2:00 PM CDT Height 165.1 cm (5' 5") 08/15/2020 2:00 PM CDT Body Mass Index 26.63 08/15/2020 2:00 PM CDT documented in this encounter Discharge Summaries Bayron Lees MD - 08/17/2020 10:05 AM CDTCONDITION AT DISCHARGE: Patient was discharged from the facility in stable condition. Please see yuridia lakhani instructions. FOLLOW UP CARE: See post op instructions. DISCHARGE DISPOSITION: HOME DISCHARGE INSTRUCTIONS GIVEN TO: PATIENT documented in this encounter Discharge Instructions Susan Xie RN - 08/17/2020CATARACT DISCHARGE INSTRUCTIONS 1. DO NOT Remove the eye patch. Leave on until you post-operative visit tomorrow. Keep it dry. 2. Activities as tolerated 3. Please no heavy lifting, and do not drive or operate machinery until you are seen by a doctor on your first post op day. 4. Your depth perception may be off, so walk a little slower. Be careful on steps or stairs and uneven ground and go slower around corners. 5. Most likely your eye will stay numb until tomorrow and you should not experience any extreme pain. However, if you should have bad pain or nausea, please call the doctor's office or hospital reinforcing steel machine operator to get in touch with doctor. 6. For mild discomfort or a headache, you may take Tylenol, Aspirin, or Ibuprofen (in not allergic). 7. You may resume your pre-operative diet. 8. If you have any further questions or concerns, please call the office or hospital reinforcing steel machine operator to getin touch with the doctor. documented in this encounter H&P Notes Bayron Lees MD - 08/17/2020 10:05 AM CDTH&P was reviewed and patient was examined and there was no change in patients condition. documented in this encounter Procedure Notes Bayron Lees MD - 08/17/2020 10:06 AM CDTPROCEDURE: CATARACT EXTRACTION WITH INTRAOCULAR IMPLANT DATE OF SURGERY:08/17/2020 SURGEON: Bayron eLes MD PROCEDURE: Extracapsular cataract extraction with intraocular lens implantation, via phacoemulsification of the Left eye. PREOPERATIVE DIAGNOSIS: Cataract Left eye. POSTOPERATIVE DIAGNOSIS: Cataract Left eye. ANESTHESIA: Local MAC ESTIMATED BLOOD LOSS: None PROCEDURE IN DETAIL: The patient was brought to the operating room where they were given general aneaesthesia. They were then prepped and draped in the usual sterile manner. A lid speculum was placed in the Left eye. BSS was placed on the cornea. A crescent blade was used to create a 2.2 mm incision at the corneal limbus at the 1:00 position. A 15 blade was used to create a stab incision at the corneal limbus at the 10:00 position. A keratome was used to enter the anterior chamber. The anterior chamber was filled with Viscoat. A cystotome needle was used to start the capsulorrhexis. Utrata forceps completed a 360 degree curvilinear capsulorrhexis. BSS on a blunt cannula was used to hydrodissect and hydrodelineate the lens nucleus and the lens freely rotated. Phacoemulsification was used to removethe nuclear material in a divide and conquer technique. The irrigation and aspiration were used to remove the remaining cortical material. Provisc on a blunt cannula was injected into the posterior capsule and anterior chamber. A SN60WF 18.0 diopter acrylic lens was injected into the posterior capsule through the original corneal scleral incision. The remaining provisc was irrigated and aspirated from the eye. BSS on a blunt cannula was used to inflate the anterior chamber. A Weck-Gladis sponge was used to check the wound for leaks and none was found. A combination of dexamethasone and antibiotics was injected into the conjunctiva adjacent to the original corneal scleral wound. The lid speculum was removed from the eye. Tobradex was placed on the conjunctiva. The eye was patched and shielded. The pa tient was discharged in the operating room in good condition. INTRAOPERATIVE COMPLICATIONS: None INTRAOPERATIVE COMPLICATIONS: None PATIENT NAME: Gavi Lam [facility] REC#: [id number] VISIT #: ROOM #: [facility] [address] [place] [id number] Bayron Lees MD - 08/17/2020 10:05 AM CDTBrief Operative Note Date Of Operation: 08/17/2020 Surgeons Name: BAYRON LEES Pre Operative Diagnosis: CATARACT LEFT EYE Post Operative Diagnosis: CATARACT LEFT EYE Operation Performed: UNDER LOCAL ANESTHESIA THE EYE WAS/WERE EXPOSED USING A LID SPECULUM. ENTRY INTO THE EYE THROUGH A MINIMAL INCISION WS MADE FOR THE SURGICAL REMOVAL OF THE NATURAL LENS (CATARACT) AND AN ARTIFICIAL INTRAOCULAR LENS IMPLANT WAS INSERTED WITHOUT COMPLICATION. Patient's Condition: PATIENT WAS DISCHARGED FROM THE FACILITY IN STABLE CONDITION. PLEASE SEE THE PATIENT DISCHARGE INSTRUCTIONS. Please see dictated operative report for additional detail. documented in this encounter Plan of Treatment Health Maintenance Due Date Last Done Comments DTaP,Tdap,and Td Vaccines (1 - Tdap) 1958 Zoster Recombinant Vaccine (SHINGRIX) (1 of 2) 1989 Medicare Wellness Visit 2004 Osteoporosis Screening 2004 PNEUMOCOCCAL VACCINES 65+ (1 of 1 - PPSV23) 2004 INFLUENZA VACCINE (#1) 2020 Depression Screening 08/17/2021 08/17/2020 documented as of this encounter Implants Implanted Type Area Community Support Associate Device Shelf Model / Identifier Expiration Date Ser ial / Lot Lens, Chris #Sn60wf - [id number] LENS Right: Chris 01/05/2025 SN60WF / Implanted: Qty: 1 on 07/06/2020 by Bayron Lees MD at [facility] Eye 1 [id number] / N/A Lens, Chris #Sn60wf - [id number] LENS Left: Eye Chris 06/26/2024 SN60WF / Implanted: Qty: 1 on 08/17/2020 by Bayron Lees MD at [facility] 1 [id number] / N/A documented as of this encounter Results Not on filedocumented in this encounter Visit Diagnoses Diagnosis Nuclear sclerotic cataract, left - Prima ry documented in this encounter Administered Medications Medication Order MAR Action Action Date Dose Rate Site balanced salt soln no.2 irrig. Given 08/17/2020 10:27 AM CDT 500 mL (BSS) ophthalmic solution PRN, Starting Mara 08/17/20 at 1027, Until Discontinued, Routine, Intra-op dexamethasone (DECADRON PHOSPHATE) Given 08/17/2020 10:36 AM CDT 0.1 mL Left Eye injection PRN, Starting Mara 08/17/20 at 1036, Until Discontinued, Routine, Intra-op DUOVISC (DUOVISC VISCO ELASTIC) 3 %-4 %(0.5 Given 08/17/2020 10:28 AM CDT 1 Kit mL) 1 % (0.55 mL) intraocular injection PRN, Starting Mara 08/17/20 at 1028, Until Discontinued, Routine, Intra-op EPINEPHrine (PF) 1:1,000 (1 mg/mL) Given 08/17/2020 10:36 AM CDT 0.5 mg Left Eye (ADRENALIN (PF)) injection PRN, Starting Mara 08/17/20 at 1036, Until Discontinued, Routine, Intra-op gentamicin injection Given 08/17/2020 10:36 AM CDT 0.1 mL Left Eye PRN, Starting Mara 08/17/20 at 1036, Until Discontinued, MICHAEL, Intra-op lactated ringers IV infusion 1,000 mL at 75 mL/hr, 1,000 mL, IV Infusion, CONTINUOUS, Starti ng Mara 08/17/20 at 1115, Until Discontinued, Routine, PACU NaCl 0.9% (NS) injection Given 08/17/2020 10:36 AM CDT 10 mL Left Eye PRN, Starting Mara 08/17/20 at 1036, Until Discontinued, Routine, Intra-op azgrxyyc-ixhltwirv-vexlzgkjwcgki (MAXITROL) Given 07/28 10:37 AM 0.5 Inches 3.5 mg/g-10,000 unit/g-0.1 % ophthalmic CDT ointment PRN, Starting Mara 08/17/20 at 1037, Until Discontinued, Routine, Intra-op water for irrigation irrigation Given 08/17/2020 10:22 AM CDT 30 mL Left Eye solution PRN, Starting Mara 08/17/20 at 1022, Until Discontinued, Routine, Intra-op Medication Order MAR Action Action Date Dose Rate Site lactated ringers IV infusion New Bag 08/17/2020 9:14 AM CDT 1,000 mL 42 mL/hr 1,000 mL at 42 mL/hr, 1,000 mL, IV Infusion, ONCE, 1 dose, Mara 08/17/20 at 0845, Routine, DSU Pre-op mydriatic #5 ophthalmic solution 0.5 mL Given 08/17/2020 9:14 A M CDT 0.5 mL syringe 0.5 mL, Left Eye, ONCE, 1 dose, Mara 08/17/20 at 0845, Routine documented in this encounter Insurance Payer Benefit Plan / Subscriber ID Effective Dates Phone Addre ss Type Group HUMANA - HUMANA [id number] 2011-[facility] Adv MANAGED MEDICARE ERS t PPO MEDICARE documented as of this encounter
[2020-10-18 12:17] LABS: Absolute Lymphocytes (CBC) 2.6 K/uL (0.7-4.9); Basophils % 0.5 % (0-1.3); Hematocrit 42.6 % (36.0-45.0); Lymphocytes % 33.9 % (15.3-44.8); MPV 8.5 fL (7.6-11.3); RBC Red Blood Cell Count 4.73 M/uL (3.86-4.86)
[2020-10-18 12:19] LABS: Protime INR 0.92
[2020-10-18] MEDS ORDERED: LORazepam 2 MG/ML VIAL ONE (12:26)
--- NOTE | 2020-10-18 12:29 | RAD REPORT ---
EXAM DESCRIPTION: RAD - Chest Single View - 10/18/2020 11:56 am CLINICAL HISTORY: dizziness, shortness of breath COMPARISON: Portable May 2015 TECHNIQUE: AP portable chest image was obtained 10/18/2020 11:56 am . FINDINGS: No peripheral mass, consolidation or failure finding. Interstitial pattern is prominent bu t not clearly different. Heart and vasculature are normal. No measurable pleural effusion and no pneu mothorax. Degenerative and scoliotic changes are present in the spine only partially imaged. No acute aortic findings suspected. IMPRESSION: No acute cardiopulmonary process. No significant change from comparison.
[2020-10-18 12:35] LABS: ALT/SGPT 17 U/L (12-78); AST/SGOT 20 U/L (15-37); Alkaline Phosphatase 148 U/L (45-117); BUN Blood Urea Nitrogen 19 mg/dL (7-18); Bicarbonate 27 mmol/L (21-32); Bilirubin Direct 0.1 mg/dL (0-0.2); Bilirubin Total 0.4 mg/dL (0.2-1.0); Glucose Level 91 mg/dL (74-106); Magnesium 2.6 mg/dL (1.8-2.4); NT PRO-BNP 68 pg/mL (<450); Potassium 4.1 mmol/L (3.5-5.1); Protein, Total 7.9 g/dL (6.4-8.2); Sodium Level 141 mmol/L (136-145); Troponin (Emerg Dept Use Only) < 0.02 ng/mL (0.0-0.045)
--- NOTE | 2020-10-18 13:27 | RAD REPORT ---
EXAM DESCRIPTION: CT - Head Brain Wo Cont - 10/18/2020 1:20 pm CLINICAL HISTORY: Dizziness COMPARISON: None TECHNIQUE: Computed axial tomography of the head was obtained. IV contrast was not requested. All CT scans are performed using dose optimization technique as appropriate and may include automated exposure control or mA/KV adjustment according to patient size. FINDINGS: An intracranial bleed is not seen . The ventricles are normal in caliber. No extra-axial fluid collection is noted. Mild to moderate low-density areas within periventricular, deep and subcortical white matter likely r epresent ischemic changes secondary to small vessel disease. Fluid within the sinuses/ mastoids is not seen. IMPRESSION: No acute intracranial abnormality is seen. If patient's symptoms persist MRI of the bra in would be recommended.
--- NOTE | 2020-10-18 14:15 | EDPHYS ---
Physician Documentation [facility] Name: Gavi Claudio Age: 80 yrs Sex: Female : 1940 Arrival Date: 10/18/2020 Time: 10:07 Bed 18 Private MD: ED Physician Sigifredo Kwan HPI: 10/18 11:10 This 80 yrs old Female presents to ER via Wheelchair with complaints of cp Shaking. 11:10 The patient presents with dizziness, generalized weakness. cp 11:10 Onset: The symptoms/episode began/occurred 1 month(s) ago. Context: just prior to the cp episode the patient experienced no apparent symptoms. 11:10 Associated signs and symptoms: Pertinent negatives: abdominal pain, chest pain, focal cp weakness, headache, palpitations, syncope. 11:10 Patient's baseline: Neuro: alert and fully oriented, Motor: no deficits, Ambulation: cp walks with assist only, uses cane, Speech: normal. Historical: - Allergies: 10:49 PENICILLINS; zb - Home Meds: 10:49 amlodipine 2.5 mg tab 1 tab once daily [Active]; losartan 100 mg oral tab 1 tab once zb daily [Active]; Spring Thyroid 60 mg Oral tab daily [Active]; aspirin 81 mg Oral TbEC 1 tab once daily [Active]; gabapentin 400 mg Oral cap 3 times per day [Active]; methotrexate sodium 2.5 mg Oral tab 5 tabs once wkly [Active]; folic acid 800 mcg Oral tab 1 tab once daily [Active]; turmeric (bulk) miscellaneous [Active]; zinc 50 mg oral tab daily [Active]; - PMHx: 10:49 Hypertension; Hypothyroidism; RA; zb - PSHx: 10:49 Appendectomy; Knee surgery; greater toe ampulation; DNC; zb - Immunization history:: Adult Immunizations up to date, Flu vaccine is up to date. - Social history:: Smoking status: Patient denies any tobacco usage or history of. ROS: 11:20 Constitutional: Negative for body aches, chills, fever, poor PO intake. cp 11:20 Eyes: Negative for injury, pain, redness, and discharge. cp 11:20 ENT: Negative for ear pain, sore throat, difficulty swallowing, difficulty handling secretions. 11:20 Cardiovascular: Negative for chest pain, edema, palpitations. 11:20 Respiratory: Negative for cough, shortness of breath, wheezing. 11:20 Abdomen/GI: Negative for abdominal pain, nausea, vomiting, and diarrhea, black/tarry stool, rectal bleeding. 11:20 : Positive for urinary frequency, Negative for burning with urination, difficulty urinating. 11:20 Skin: Negative for rash. 11:20 Neuro: Positive for dizziness, weakness, Negative for altered mental status, headache, syncope. 11:20 All other systems are negative. Exam: 11:25 Constitutional: The patient appears in no acute distress, alert, awake, cp non-diaphoretic, non-toxic, well developed, well nourished. 11:25 Head/Face: Normocephalic, atraumatic. cp 11:25 Eyes: Periorbital structures: appear normal, Pupils: equal, round, and reactive to light and accomodation, Extraocular movements: intact throughout, Conjunctiva: normal, no exudate, no injection, Sclera: no appreciated abnormality, Lids and lashes: appear normal, bilaterally. 11:25 ENT: External ear(s): are unremarkable, Nose: is normal, Mouth: Lips: moist, Oral mucosa: moist, Posterior pharynx: Airway: no evidence of obstruction, patent. 11:25 Neck: ROM/movement: is normal, is supple, without pain, no range of motions limitations, no nuchal rigidity. 11:25 Chest/axilla: Inspection: normal, Palpation: is normal, no crepitus, no tenderness. 11:25 Cardiovascular: Rate: normal, Rhythm: regular, Edema: is not appreciated, JVD: is not appreciated. 11:25 Respiratory: the patient does not display signs of respiratory distress, Respirations: normal, no use of accessory muscles, no retractions, labored breathing, is not present, Breath sounds: are clear throughout, no decreased breath sounds, no stridor, no wheezing. 11:25 Abdomen/GI: Inspection: abdomen appears normal, Palpation: abdomen is soft and non-tender, in all quadrants. 11:25 Back: pain, is absent, ROM is normal. 11:25 Skin: cellulitis, is not appreciated, no rash present. 11:25 Neuro: Orientation: to person, place \T\ time. Mentation: is normal, Cerebellar function: Romberg testing is negative, Motor: moves all fours, strength is normal, Sensation: is normal. 11:51 ECG was reviewed by the Attending Physician. Vital Signs: 10:41 BP 142 / 123; Pulse 69; Resp 16; Temp 97.7(TE); Pulse Ox 95% on R/A; Weight 74.84 kg; zb Height 5 ft. 5 in. (165.10 cm); Pain 0/10; 12:00 BP 146 / 76; Pulse 64; Resp 18; Pulse Ox 97% on R/A; zb 13:00 BP 131 / 73; Pulse 69; Resp 14; Pulse Ox 96% on R/A; zb 14:00 BP 134 / 80; Pulse 70; Resp 16; Pulse Ox 99% on R/A; zb 10:41 Body Mass Index 27.46 (74.84 kg, 165.10 cm) zb MDM: 14:14 Patient medically screened. cp 14:14 Data reviewed: vital signs, nurses notes, lab test result(s), EKG, radiologic studies, cp CT scan, plain films, and as a result, I will discharge patient. 14:14 Test interpretation: by ED physician or midlevel provider: ECG. Counseling: I had a cp detailed discussion with the patient and/or guardian regarding: the historical points, exam findings, and any diagnostic results supporting the discharge/admit diagnosis, lab results, radiology results, the need for outpatient follow up, a neurologist, to return to the emergency department if symptoms worsen or persist or if there are any questions or concerns that arise at home. Response to treatment: the patient's symptoms have markedly improved after treatment, and as a result, I will discharge patient. ED course: VSS. Labs, EKG and radiology studies reviewed. Symptoms improved. Will discharge to home for continued monitoring. 10/18 11:07 Order name: Basic Metabolic Panel; Complete Time: 13:08 cp 10/18 13:08 Interpretation: Normal except: CL 108; BUN 19; GFR 68. cp 10/18 11:07 Order name: CBC with Diff; Complete Time: 13:08 cp 10/18 11:07 Order name: LFT's; Complete Time: 13:08 cp 10/18 11:07 Order name: Magnesium; Complete Time: 13:08 cp 10/18 11:07 Order name: NT PRO-BNP; Complete Time: 13:08 cp 10/18 11:07 Order name: PT-INR; Complete Time: 13:08 cp 10/18 11:07 Order name: Troponin (emerg Dept Use Only); Complete Time: 13:08 cp 10/18 11:07 Order name: XRAY Chest (1 view); Complete Time: 13:08 cp 10/18 11:07 Order name: EKG; Complete Time: 11:07 cp 10/18 11:07 Order name: Cardiac monitoring; Complete Time: 12:59 cp 10/18 11:07 Order name: EKG - Nurse/Tech; Complete Time: 12:59 cp 10/18 11:07 Order name: CT Head Brain wo Cont; Complete Time: 13:57 cp 10/18 13:57 Interpretation: Report reviewed. 10/18 11:07 Order name: Urine Microscopic Only cp 10/18 11:07 Order name: IV Saline Lock; Complete Time: 12:59 cp 10/18 11:07 Order name: Labs collected and sent; Complete Time: 12:59 cp 10/18 11:07 Order name: O2 Per Protocol; Complete Time: 12:59 cp 10/18 11:07 Order name: O2 Sat Monitoring; Complete Time: 12:59 cp 10/18 11:07 Order name: Orthostatics; Complete Time: 14:30 cp EC:51 Rate is 66 beats/min. Rhythm is regular. [place] interval is normal. QRS interval is normal. cp QT interval is normal. Interpreted by me. Reviewed by me. Administered Medications: 12:17 Drug: Ativan 0.5 mg Route: IVP; Site: left antecubital; zb 14:30 Follow up: Response: No adverse reaction zb Disposition: 10/19 08:00 Co-signature as Attending Physician, Sigifredo Kwan MD I agree with the assessment and kdr plan of care. Disposition: 10/18/20 14:14 Discharged to Home. Impression: Dizziness and giddiness. - Condition is Stable. - Discharge Instructions: Dizziness. - Prescriptions for Meclizine 25 mg Oral Tablet - take 1 tablet by ORAL route every 8 hours As needed; 30 tablet. Macrobid 100 mg Oral Capsule - take 1 capsule by ORAL route every 12 hours for 7 days; 14 capsule. - Medication Reconciliation Form, Thank You Letter, Antibiotic Education, Prescription Opioid Use form. - Follow up: Anjel Mederos MD; When: 2 - 3 days; Reason: Recheck today's complaints. - Problem is new. - Symptoms have improved. Signatures: Dispatcher [employer] EDMS Sigifredo Kwan MD MD [facility] Vic Sorenson PA PA cp Zohra Bustamante RN RN zb Corrections: (The following items were deleted from the chart) 10/18 15:33 14:14 10/18/2020 14:14 Discharged to Home. Impression: Dizziness and giddiness. zb Condition is Stable. Forms are Medication Reconciliation Form, Thank You Letter, Antibiotic Education, Prescription Opioid Use. Follow up: Anjel Mederos; When: 2 - 3 days; Reason: Recheck today's complaints. Problem is new. Symptoms have improved. cp
--- NOTE | 2020-10-18 14:15 | ER ---
Nurse's Notes [facility] Name: Gavi Claudio Age: 80 yrs Sex: Female : 1940 Arrival Date: 10/18/2020 Time: 10:07 Bed 18 Private MD: Diagnosis: Dizziness and giddiness Presentation: 10/18 10:41 Chief complaint: Patient states: for about a month she has been having dizzy spells. zb especially if she turn her head left to right. Coronavirus screen: At this time, the client does not indicate any symptoms associated with coronavirus-19. Ebola Screen: No symptoms or risks identified at this time. Initial Sepsis Screen: Does the patient meet any 2 criteria? No. Patient's initial sepsis screen is negative. Does the patient have a suspected source of infection? No. Patient's initial sepsis screen is negative. Risk Assessment: Do you want to hurt yourself or someone else? Patient reports no desire to harm self or others. Onset of symptoms was September 2020. 10:41 Method Of Arrival: Wheelchair zb 10:41 Acuity: MARIA L 3 zb Triage Assessment: 10:50 General: Appears in no apparent distress. comfortable, Behavior is calm, cooperative, zb appropriate for age. Pain: Denies pain. EENT: No signs and/or symptoms were reported regarding the EENT system. Neuro: Level of Consciousness is awake, alert, obeys commands, Oriented to person, place, time, situation, Reports dizziness, since 1mth. Cardiovascular: Reports None Heart tones S1 S2 present Capillary refill < 3 seconds in bilateral fingers Patient's skin is warm and dry. Respiratory: Airway is patent Respiratory effort is even, unlabored, Respiratory pattern is regular, symmetrical, Breath sounds are clear bilaterally. GI: Abdomen is flat, distended, Bowel sounds present X 4 quads. : No signs and/or symptoms were reported regarding the genitourinary system. Derm: Skin is intact, is healthy with good turgor, Skin is normal, Skin temperature is warm. Musculoskeletal: Amputation of greater toe. Capillary refill < 3 seconds, in bilateral fingers. 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 Historical: - Allergies: 10:49 PENICILLINS; zb - Home Meds: 10:49 amlodipine 2.5 mg tab 1 tab once daily [Active]; losartan 100 mg oral tab 1 tab once zb daily [Active]; Mears Thyroid 60 mg Oral tab daily [Active]; aspirin 81 mg Oral TbEC 1 tab once daily [Active]; gabapentin 400 mg Oral cap 3 times per day [Active]; methotrexate sodium 2.5 mg Oral tab 5 tabs once wkly [Active]; folic acid 800 mcg Oral tab 1 tab once daily [Active]; turmeric (bulk) miscellaneous [Active]; zinc 50 mg oral tab daily [Active]; - PMHx: 10:49 Hypertension; Hypothyroidism; RA; zb - PSHx: 10:49 Appendectomy; Knee surgery; greater toe ampulation; DNC; zb - Immunization history:: Adult Immunizations up to date, Flu vaccine is up to date. - Social history:: Smoking status: Patient denies any tobacco usage or history of. Screenin:52 Abuse screen: Denies threats or abuse. Denies injuries from another. Nutritional zb screening: No deficits noted. Tuberculosis screening: No symptoms or risk factors identified. Fall Risk Fall in past 12 months (25 points). No secondary diagnosis (0 pts). IV access (20 points). Ambulatory Aid- Crutches/Cane/Walker (15 pts). Gait- Weak (10 pts.). Mental Status- Oriented to own ability (0 pts). Total Menjivar Fall Scale indicates High Risk Score (45 or more points). Fall prevention measures have been instituted. Side Rails Up X 2 Placed Close to Nursing Station Frequent Obs/Assessments Occuring Family Present and informed to notify staff if the need to leave the bedside As available patient and family educated on Fall Prevention Program and Strategies. Assessment: 10:50 Reassessment: See triage assessment. zb 11:50 Reassessment: Patient appears in no apparent distress at this time. Patient and/or zb family updated on plan of care and expected duration. Pain level reassessed. Patient is alert, oriented x 3, equal unlabored respirations, skin warm/dry/pink. pt ambulated to restroom w/ assistance. friend at bedside no c/o pain. minimal dizziness. 12:50 Reassessment: Patient appears in no apparent distress at this time. Patient and/or zb family updated on plan of care and expected duration. Pain level reassessed. Patient is alert, oriented x 3, equal unlabored respirations, skin warm/dry/pink. pt slightly anxious about CT. ECP notified medication given. 13:22 Reassessment: Patient appears in no apparent distress at this time. Patient and/or zb family updated on plan of care and expected duration. Pain level reassessed. Patient is alert, oriented x 3, equal unlabored respirations, skin warm/dry/pink. patient in CT. felt less anxious. 14:30 Reassessment: Patient appears in no apparent distress at this time. Patient and/or zb family updated on plan of care and expected duration. Pain level reassessed. Patient is alert, oriented x 3, equal unlabored respirations, skin warm/dry/pink. family at bedside. no c/o at this time. 15:13 Reassessment: Patient appears in no apparent distress at this time. Patient and/or zb family updated on plan of care and expected duration. Pain level reassessed. Patient is alert, oriented x 3, equal unlabored respirations, skin warm/dry/pink. Vital Signs: 10:41 BP 142 / 123; Pulse 69; Resp 16; Temp 97.7(TE); Pulse Ox 95% on R/A; Weight 74.84 kg; zb Height 5 ft. 5 in. (165.10 cm); Pain 0/10; 12:00 BP 146 / 76; Pulse 64; Resp 18; Pulse Ox 97% on R/A; zb 13:00 BP 131 / 73; Pulse 69; Resp 14; Pulse Ox 96% on R/A; zb 14:00 BP 134 / 80; Pulse 70; Resp 16; Pulse Ox 99% on R/A; zb 10:41 Body Mass Index 27.46 (74.84 kg, 165.10 cm) zb ED Course: 10:07 Patient arrived in ED. rg4 10:37 Sigifredo Kwan MD is Attending Physician. kdr 10:41 Zohra Bustamante RN is Primary Nurse. zb 10:45 Triage completed. zb 10:52 Vic Sorenson PA is PHCP. cp 10:53 Patient has correct armband on for positive identification. Bed in low position. Call zb light in reach. Adult w/ patient. Pulse ox on. NIBP on. Door closed. Noise minimized. Warm blanket given. 10:53 Arm band placed on Patient placed in an exam room. 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 She then agreed if friend could come and stay by her. Attempted to put pt on table and bring table up, but she couldn't do it. Took pt back to her room and notified vic sorenson. 11:56 XRAY Chest (1 view) In Process Unspecified. EDMS 12:00 Inserted saline lock: 20 gauge in left antecubital area, using aseptic technique. Blood zb collected. 12:33 Radiology exam delayed due to 2nd attempt after ativan given. pt said she still doesn't sj feel it and wants more. She stated she's not ready and she may not be able to do it. Provider notified. We told pt to call us when she thinks she can do it. 13:20 CT Head Brain wo Cont In Process Unspecified. EDMS 14:14 Anjel Mederos MD is Referral Physician. cp 15:30 No provider procedures requiring assistance completed. IV discontinued, intact, zb bleeding controlled, No redness/swelling at site. Pressure dressing applied. Administered Medications: 12:17 Drug: Ativan 0.5 mg Route: IVP; Site: left antecubital; zb 14:30 Follow up: Response: No adverse reaction zb Outcome: 14:14 Discharge ordered by MD. cp 15:30 Discharged to home ambulatory. zb 15:30 Condition: stable 15:30 Discharge instructions given to patient, Instructed on discharge instructions, follow up and referral plans. medication usage, Demonstrated understanding of instructions, follow-up care, medications, Prescriptions given X 2. 15:33 Patient left the ED. zb Addendum: 10/24/2020 12:55 Addendum: Culture Results: Positive urine culture. Patient was not prescribed d m5 antibiotics at discharge. Report given to CAROL for further evaluation and then to retail management trainee for follow up with patient. Phone call Attempt #1 unable to leave voice mail. Signatures: Dispatcher [employer] EDMT Katie Horner RN RN [email or web address] Sigifredo Kwan MD MD kdr Jones, Susan sj Page, Corey, PA PA cp Garcia, Rubi 4 Brown, Zohra, RN RN zb Corrections: (The following items were deleted from the chart) 10/18 19:44 15:30 Discharge instructions given to patient, Instructed on discharge instructions, zb follow up and referral plans. Demonstrated understanding of instructions, follow-up care, zb
[2020-10-18 15:45] LABS: Urine Bacteria <20 /HPF (<20); Urine RBC <5 /HPF (NONE SEEN)
[2020-10-18 18:08] VITALS: TEMP 97.7
[2020-10-18 18:12] VITALS: BP 134/80; O2SAT 99
== END 2020-10-18 15:33 | disposition home or self-care (01) ==
LOC: ER 10:01
DX: R42 Dizziness and giddiness (principal); R53.1 Weakness; I10 Essential (primary) hypertension; E03.9 Hypothyroidism, unspecified; Z79.82 Long term (current) use of aspirin; Z88.0 Allergy status to penicillin
CPT/HCPCS: 36415; 70450; 71045; 80048; 80076; 81015; 83735; 83880; 84484; 85025; 85610; 87077; 87086; 87088; 87186; 93005; 96374; 99284